=== PATIENT | female | born 1970 | race Caucasian/White ===

== ENCOUNTER 2017-01-30 23:00 | Inpatient (IN) | payer OTHER ==
--- NOTE | ~2017-01-30 | PA ---
Unit #: [id number] #: [id number] Patient: EMILY MORALES [id number] [facility] [address] [place] [address] [id number] I MR#: [id number] NAME: EMILY MORALES ROOM: P179 Age: 46 Sex: F Admission Date: 01/31/2017 : 1970 Date of Assessment: Attending Physician: Emre Dumont M.D. Admitting Physician: Emre Dumont M.D. Primary Care Physician: Generic Doctor Not In System PSYCHIATRIC ASSESSMENT IDENTIFYING DATA Ms. Morales is a 46-year-old single white female, who is a resident of [place], [place] and presented alone to the hospital. CHIEF COMPLAINT "I cannot stop drinking. I lost my job because of drinking". HISTORY OF PRESENT ILLNESS Ms. Morales is a 46-year-old white female with history of alcohol dependence, who was self-referred to the hospital, presenting with alcohol dependance stated that she has had significant consequences because of her drinking and she lost her job and she cannot stop drinking on her own and "I cannot seem to not do it". The patient reports drinking yesterday and a fifth of bourbon and reports drinking alcohol on daily basis and drinking a fifth of bourbon on a daily basis and reports nausea, vomiting, and that she was supposed to go to [facility] today and was not able to go due to feeling sick and denies any suicidal ideation, however, on evaluation by me, the patient is lying flat in bed with blunted affect, minimal interaction, somewhat out of touch with reality, appearing somewhat confused. When I asked how she was doing, she took a few moments and then she came up slowly stating "I do not have any answers." She did upon presentation to the hospital stated that "for the first time in my life, I live alone". The patient reports that the people in her neighborhood, has a lot of drugs and that stresses her out and reports her ex- is an alcoholic and "I had to leave him". She also later added by stating, "I have no money, I haven't paid my rent, and I going to get evicted at some point". The patient reports having strained relationship with her ex and reported that she has been since April 2016 and does report feelings of hopelessness, helplessness, and poor energy level, psychomotor retardation, but denies any suicidal ideations, intent, or plan. SUBSTANCE ABUSE HISTORY The patient reports history of experimentation with opioids, cocaine, and cannabis, but alcohol appears to be her drug of choice. She reports that she has been drinking ever since she was 13-year-old and currently has been drinking a fifth of bourbon a day. PAST PSYCHIATRIC HISTORY The patient has had 2 prior inpatient chemical dependency treatment at [facility] and has an outpatient treatment at [facility] as well currently, however, currently she is not active in any treatment program, is not seeing a psychiatrist, and is not taking any psychotropic Unit #: [id number] #: [id number] Patient: EMILY MORALES medications. PAST MEDICAL HISTORY No acute or chronic medical illnesses. ALLERGIES No known medication allergies. PERSONAL AND SOCIAL HISTORY A 46-year-old white female, who reports that she is and lives alone and has poor social support system. MENTAL STATUS EXAMINATION Middle-aged white female, who was casually dressed with fair personal hygiene, appears to be in no acute distress or discomfort. She was awake and alert on interaction with intact orientation to time, place, and person. Her mood was anxious and depressed with a congruent affect. Her speech was slow and restricted in content. Her thought processes were disorganized with some looseness of associations. Her insight and judgment remain significantly impaired. DIAGNOSTIC IMPRESSION Psychiatric: Alcohol dependence, moderate and acute withdrawals. Alcohol-induced mood disorder. Medical: None. Stressors: Moderate psychosocial stressors. TREATMENT PLAN 1. The patient has presented with history of mood disorder and substance abuse and has been decompensating and will need inpatient hospitalization for safety and stabilization. We will start her back on her home medications. We will adjust her medications and monitor response. 2. Supportive therapy was provided to the patient. 3. Safe, structured, and nourishing environment will be provided. ESTIMATED LENGTH OF STAY 5 to 7 days. ABILITY TO HELP SELF Limited. WILLINGNESS TO HELP SELF The patient appears to be willing to help self. STRENGTHS 1. Communicative. 2. Cooperative. PROBLEMS 1. Chronic chemical dependency. 2. Chronic dysphoric symptoms. 3. Poor social support system. DISCHARGE CRITERIA This will be contingent upon the patient's ability to show resolution of her depression and anxiety and her ability to stay safe to herself, particularly after discharge from the hospital. Unit #: [id number] #: [id number] Patient: EMILY MORALES Dictated by... Zeyad Gonzales/nayeli TD: 01/31/2017 17:05 JOB #: [id number] PSYCHIATRIC ASSESSMENT Page 1 of 1 X Emre Dumont MD PSYCHIATRIC ASSESSMENT
--- NOTE | ~2017-01-30 | HP ---
Unit #: [id number] #: [id number] Patient: JULIANE SAMAYOA [id number] [place] [address] [id number] MR#: [id number] NAME: JULIANE SAMAYOA ROOM: P179 Age: 46 Sex: F Admission Date: 01/31/2017 : 1970 Attending Physician: Emre Dumont M.D. Admitting Physician: Emre Dumont M.D. Primary Care Physician: Generic Doctor Not In System HISTORY AND PHYSICAL HISTORY OF PRESENT ILLNESS Juliane is a 46-year-old female admitted on 01/31/2017 to [facility] for detox from alcohol. PAST MEDICAL HISTORY 1. Trigeminal neuralgia. 2. SVT. PAST SURGICAL HISTORY 1. Cardiac ablation for SVT. 2. Bilateral tubal ligation. 3. Several right hand surgeries after an injury. SOCIAL HISTORY Smokes 1 pack of cigarettes daily. Drinks a fifth of alcohol daily. No illegal drug use. She is currently single and living alone. ALLERGIES No known drug allergies. FAMILY HISTORY Noncontributory. REVIEW OF SYSTEMS CONSTITUTIONAL: No fever or chills. HEENT: Denies any sore throat, ear pain or runny nose. CARDIOVASCULAR: Denies chest pain, irregular heart rhythm or palpitations. CHEST: Denies shortness of breath or cough. No hemoptysis. GASTROINTESTINAL: Denies nausea, vomiting, diarrhea or chronic constipation. ENDOCRINE: Denies history of increased thirst or urination. No recent significant weight loss or gain. GENITOURINARY: Denies dysuria, frequency, or hematuria. SKIN: Denies any rashes. HEMATOLOGIC: Denies history of increased bleeding or bruising. MUSCULOSKELETAL: Denies any hot, swollen joints. No generalized muscle pain. NEUROLOGIC: Denies problems with vision or speech. No frequent, severe headaches. No numbness, tingling or weakness in any extremities. Denies loss of bladder or bowel control. CURRENT MEDICATIONS Tegretol. Unit #: [id number] #: [id number] Patient: JULIANE SAMAYOA PHYSICAL EXAMINATION GENERAL: Alert, oriented, in no acute distress. VITAL SIGNS: Blood pressure 117/79, heart rate 85, temperature 99.4. HEIGHT: 5 feet 5. WEIGHT: 130 pounds. SKIN: Warm and dry without rash or lesion. HEENT: Normocephalic. TMs not viewed. Oral and nasal passages clear. Conjunctivae clear. PERRLA. EOMs intact. NECK: Supple without lymphadenopathy or thyromegaly. HEART: Regular rate and rhythm without murmur. LUNGS: Clear. ABDOMEN: Soft, nontender, without masses or hepatosplenomegaly. : Not done. EXTREMITIES: No evidence of cyanosis, clubbing or edema. Moves all without focal deficit. NEUROLOGICAL: Grossly within normal limits. Cranial Nerves: II: Visual michaels are intact. III, IV AND : Extraocular movements are intact. Pupils are equal, round and reactive to light. V: Facial sensation is grossly normal. VII: Facial movements and expression are normal. VIII: Auditory acuity grossly intact. IX, X: Uvula is midline. Phonation is normal. XI: Patient shrugs shoulders and turns head normally. XII: Tongue protrudes in the midline. Sensory and Motor Function: Sensory and motor sensation is grossly normal. Motor: moves all extremities well. Coordination: Gait is normal. Deep Tendon Reflexes: Intact. IMPRESSION 1. Psychiatric admission. 2. Trigeminal neuralgia. 3. History of SVT. RECOMMENDATIONS PSYCHIATRIC: Per psychiatrist. MEDICAL: No contraindications to participate in facility's activities. MEDICAL PROGNOSIS Good. MEDICAL CONDITION Stable. Dictated by... Riaz Ann/kyrie TD: 01/31/2017 19:38 JOB #: [id number] Unit #: [id number] #: [id number] Patient: JULIANE SAMAYOA HISTORY AND PHYSICAL Page 1 of 1 X NIMESH ROWLEY APRN HISTORY AND PHYSICAL
--- NOTE | ~2017-01-30 | PN ---
Unit #: [id number] #: [id number] Patient: EMILY MORALES [id number] [facility] [address] [place] [address] [id number] I MR#: [id number] NAME: EMILY MORALES ROOM: [facility] Age: 46 Sex: F Admission Date: 01/31/2017 : 1970 Attending Physician: Emre Dumont M.D. Admitting Physician: Emre Dumont M.D. Primary Care Physician: Angelita Doctor Not In System [facility] PROGRESS NOTES DATE February 03, 2017 DISCUSSION Ms. Morales is a 46-year-old white female, who was seen today and chart was reviewed and the case was discussed with the staff. She has been anxious, withdrawn, but has not shown any agitation, irritability, or behavioral problems, and has been cooperative with the treatment recommendations and has been taking the medications and tolerating them fairly well, with no reported side effects. MENTAL STATUS EXAMINATION Middle-aged white female, who was casually dressed with fair personal hygiene and appears to be in no acute distress or discomfort. The patient was awake and alert on interaction with intact orientation. Her mood is anxious with a congruent affect. The patient denies any suicidal or homicidal ideations, and also denies any auditory or visual hallucinations. Her insight and judgment remain slightly impaired. TREATMENT PLAN 1. We will continue her on her current medications and treatment protocol, and will monitor her response to the medications, and make further adjustments as needed. 2. We will continue to followup. Dictated by... Zeyad Gonzales/soco TD: 02/03/2017 13:11 JOB #: [id number] Unit #: [id number] #: [id number] Patient: EMILY MORALES [facility] PROGRESS NOTES Page 1 of 1 X Emre Dumont MD PROGRESS NOTE
--- NOTE | ~2017-01-30 | PN ---
Unit #: [id number] #: [id number] Patient: EMILY MORALES [id number] [facility] [address] [place] [address] [id number] MR#: [id number] NAME: EMILY MORALES ROOM: P179 Age: 46 Sex: F Admission Date: 01/31/2017 : 1970 Attending Physician: Emre Dumont M.D. Admitting Physician: Emre Dumont M.D. Primary Care Physician: Angelita Doctor Not In System [facility] PROGRESS NOTES DATE OF SERVICE: 02/01/2017 SUBJECTIVE Ms. Morales is a 46-year-old white female who was seen today and chart was reviewed and case was discussed with the staff. She has been anxious, withdrawn, and rather seclusive to herself, though has been cooperative with treatment recommendations and has been taking medications and tolerating them fairly well with no reported side effects. MENTAL STATUS EXAMINATION Middle-aged white female, who was casually dressed with fair personal hygiene, appears to be in no acute distress or discomfort. She was awake and alert on interaction with intact orientation. Her mood was anxious with a congruent affect. She denies any suicidal or homicidal ideations. Her insight and judgment remain slightly impaired. TREATMENT PLAN 1. We will continue current medications and treatment protocol. We will monitor her response to the medications and make further adjustments as needed. 2. We will continue to follow up. Dictated by... Zeyad Gonzales/nayeli TD: 02/01/2017 11:48 JOB #: [id number] [facility] PROGRESS NOTES Page 1 of 1 X Emre Dumont MD PROGRESS NOTE
--- NOTE | ~2017-01-30 | DS ---
Unit #: [id number] #: [id number] Patient: [facility] [id number] [facility] [address] [place] [address] [id number] I MR#: [id number] NAME: EMILY MORALES ROOM: 79 Age: 46 Sex: F Admission Date: 01/31/2017 : 1970 Discharge Date: 02/04/2017 Attending Physician: Emre Dumont M.D. Primary Care Physician: Generic Doctor Not In System DISCHARGE SUMMARY REASON FOR ADMISSION Ms. Morales is a 46-year-old single white female who is a resident of [place], [place] and was self-referred to the hospital with a chief complaint of "I cannot stop drinking. I lost my job because of drinking." HISTORY OF PRESENT ILLNESS Please see initial psychiatric evaluation. PAST PSYCHIATRIC HISTORY Please see initial psychiatric evaluation. PAST MEDICAL HISTORY Please see initial psychiatric evaluation. HOSPITAL COURSE The patient was admitted to the adult chemical dependence at [facility] rasheed Kapoor and was oriented to the hospital and routine p.r.n. medications were initiated and she was started back on her home medications and medications were adjusted and she was closely monitored. She was taking the medications regularly and was tolerating them fairly well and was able to come out of the detox without any complications and was wanting to go home and was willing to continue with treatment on outpatient basis and as such it was decided that she will be discharged. DISCHARGE DIAGNOSES PSYCHIATRIC: 1. Alcohol dependence, moderate in acute withdrawal. 2. Alcohol induced mood disorder. MEDICAL: None. STRESSORS: Moderate psychosocial stressor. DISCHARGE MEDICATIONS None. CONDITION AT DISCHARGE Stable. PROGNOSIS Fair. Unit #: [id number] #: [id number] Patient: EMILY MORALES Dictated by... Emre Dumont M.D. IAA/kyrie TD: 02/04/2017 19:47 JOB #: [id number] DISCHARGE SUMMARY Page 1 of 1 X Emre Dumont MD X DISCHARGE SUMMARY
--- NOTE | ~2017-01-30 | PN ---
Unit #: [id number] #: [id number] Patient: EMILY MORALES [id number] [facility] [address] [place] [address] [id number] I MR#: [id number] NAME: EMILY MORALES ROOM: [facility] Age: 46 Sex: F Admission Date: 01/31/2017 : 1970 Attending Physician: Emre Dumont M.D. Admitting Physician: Emre Dumont M.D. Primary Care Physician: Generic Doctor Not In System [facility] PROGRESS NOTES DATE February 02, 2017 DISCUSSION Ms. Morales is a 46-year-old white female, who was seen today and chart was reviewed and the case was discussed with the staff. She was feeling better and has been showing improvement in her daily functioning and has been calm and cooperative and going to therapy groups. MENTAL STATUS EXAMINATION Middle-aged white female, who was casually dressed with fair personal hygiene and appears to be in no acute distress or discomfort. She was awake and alert on interaction with intact orientation. Her mood was anxious with a congruent affect. The patient denies any suicidal or homicidal ideations. Her insight and judgment remain slightly impaired. TREATMENT PLAN 1. We will continue her on her current medications and treatment protocol, and will monitor her response to the medications, and make further adjustments as needed. 2. We will continue to followup. Dictated by... Emre Dumont M.D. TUCKER/soco TD: 02/02/2017 10:41 JOB #: [id number] Unit #: [id number] #: [id number] Patient: EMILY MORALES [facility] PROGRESS NOTES Page 1 of 1 X Emre Dumont MD PROGRESS NOTE
[2017-01-31 12:20] LABS: BASOPHIL% 0.4 % (0-2.5); EOSINOPHIL# 0.1 X10e3 (0-0.7); EOSINOPHIL% 1.3 % (0.0-7.0); HEMATOCRIT 40.5 % (35.0-45.0); HEMOGLOBIN 13.5 gm/dL (12.0-16.0); LYMPHOCYTE# 2.2 X10e3 (1.0-3.5); MEAN CELL VOLUME 100.2 FL (83-96); MEAN CORPUSCULAR HEMOGLOBIN 33.3 PG (28-34); MEAN CORPUSCULAR HGB CONC 33.2 g/dL (30-36); MEAN PLATELET VOLUME 8.8 FL (6.5-11.5); MONOCYTE# 0.2 X10e3 (0-1.0); MONOCYTE% 1.6 % (3.0-12.0); NEUTROPHIL# 7.1 X10e3 (1.5-7.1); NEUTROPHIL% 73.7 % (40-75); PLATELET COUNT 143 X10e3 (140-420); RED BLOOD COUNT 4.05 X10e (3.90-5.30); RED CELL DISTRIBUTION WIDTH 15.5 % (11.0-15.5); WHITE BLOOD COUNT 9.6 X10e3 (4.0-10.5)
[2017-01-31 12:22] LABS: DIFF IND NO
[2017-01-31 12:42] LABS: ALBUMIN SERUM 3.7 g/dL (3.5-5.0); BILIRUBIN,TOTAL 0.6 mg/dL (0.2-2.0); CALCIUM SERUM 9.2 mg/dL (8.4-10.2); CREATININE SERUM 0.5 mg/dL (0.6-1.4); GLOM FILT RATE Estimated 116.1 mL/min (>60); POTASSIUM 3.1 mmol/L (3.5-5.1); PROTEIN TOTAL SERUM 6.5 g/dL (6.0-8.3)
[2017-02-02 09:50] LABS: URINE APPEARANCE CLEAR; URINE BILIRUBIN NEG (NEG); URINE BLOOD 1+ (NEG); URINE COLOR DK YELLOW; URINE GLUCOSE NEG (NEG); URINE KETONE NEG (NEG); URINE LEUKOCYTE ESTERASE TRACE (NEG); URINE NITRATE NEG (NEG); URINE PH 7.5 (5-8); URINE PROTEIN NEG (NEG); URINE SPECIFIC GRAVITY 1.012 (1.003-1.035)
[2017-02-02 09:56] LABS: U HYALINE CASTS AUWI 0-2 /[LPF]; URINE BACTERIA AUWI 2+ (NEGATIVE); URINE SQUAMOUS EPITHELIAL CELL FEW /[HPF]
[2017-02-02 10:26] LABS: AMPHETAMINE NEG (NEG); BARBITURATES NEG (NEG); BENZODIAZEPINES POS (NEG); COCAINE NEG (NEG); MARIJUANA NEG (NEG); OPIATES NEG (NEG); TRICYCLIC ANTIDEPRESSANTS NEG (NEG); U METHADONE NEG (NEG)
== END 2017-02-04 09:20 | DRG 897 ==
LOC: P1E 01-31 00:29
PROVIDERS: Psychiatry & Neurology Psychiatry
PROC: HZ2ZZZZ Detoxification Services for Substance Abuse Treatment (ICD-10-PCS; principal; 2017-01-31)
DX: F10.239 Alcohol dependence with withdrawal, unspecified (principal); I47.1 Supraventricular tachycardia; F10.24 Alcohol dependence with alcohol-induced mood disorder; G50.0 Trigeminal neuralgia; F17.210 Nicotine dependence, cigarettes, uncomplicated; Z98.51 Tubal ligation status
CPT/HCPCS: 80053; 80307; 81003; 85025; 86592